=== PATIENT | male | born 1975 | race Caucasian/White ===

== ENCOUNTER 2023-07-25 22:08 | Emergency (ER) | payer SELFPAY ==
[2023-07-25] MEDS ORDERED: TDAP (DIPHTH,PERTUSS(ACELL),TET VAC) 0.5 ML VIAL IMVAC ONE (22:53)
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
[2023-07-25] MEDS ORDERED: IBUPROFEN 400 MG TAB ONE (23:37)
[2023-07-25] MEDS ORDERED: BACI/NEOMYCIN/POLY OINT 15GM TOP ONE (23:37)
[2023-07-25 23:38] VITALS: BP 129/75; TEMP 99.4; O2SAT 100
--- NOTE | 2023-07-27 13:40 | RAD REPORT ---
EXAM DESCRIPTION: RAD - Elbow Right 3 View - 07/25/2023 10:48 pm CLINICAL HISTORY: PAIN COMPARISON: None TECHNIQUE: 3 views of the right elbow. FINDINGS: Normal mineralization. No acute fracture or dislocation. Joint spaces are maintained. No significant joint effusion. Tiny olecranon enthesophyte. IMPRESSION: No acute bony finding. Electronically signed by: Maty Tarango MD 07/26/2023 06:21 AM PARTS FABRICATOR Due to temporary technical issues with the PACS/Fluency reporting system, reports are being signed by the in house radiologist without review as a courtesy to ensure prompt reporting. The interpreting r adiologist is fully responsible for the content of the report.
--- NOTE | 2023-07-27 13:41 | RAD REPORT ---
EXAM DESCRIPTION: CT - Head C Spine Mpr Wo Con - 07/26/2023 6:40 am CLINICAL HISTORY: 47 years Male Pain;Trauma COMPARISON: None TECHNIQUE: Images were obtained and axial, sagittal, and coronal planes. This exam was performed according to our departmental dose-optimization program which includes use of Automated Exposure Control, adjustment of the mA and/or kV according to patient size and/or use of iterative reconstruction technique. FINDINGS: CT brain: Ventricular system appears normal. No abnormal areas of increased attenuation se en. No extra-axial fluid collections noted. No evidence for skull fracture. Symmetric aeration mastoi d air cells bilaterally. Unremarkable paranasal sinuses. CT cervical spine: Tiny of the vertebral bodies is intact. Satisfactory alignment articular facets. I ntact odontoid and predental space. Prevertebral soft tissues appear normal. Intact occipital condyle s. Intact C1. Posterior elements intact on all levels. No abnormality lung apices bilaterally. No foc al disc protrusion. IMPRESSION: No acute intracranial abnormality. No evidence for hemorrhage, mass lesion, or large acu te infarction. No acute fracture or subluxation involving the cervical spine. Electronically signed by: Mirna Blake MD 07/26/2023 12:08 AM RNFA Due to temporary technical issues with the PACS/Fluency reporting system, reports are being signed by the in house radiologist without review as a courtesy to ensure prompt reporting. The interpreting r adiologist is fully responsible for the content of the report.
== END 2023-07-25 23:30 | disposition home or self-care (01) ==
LOC: ER 22:08
DX: S00.81XA Abrasion of other part of head, initial encounter (principal); S50.01XA Contusion of right elbow, initial encounter
CPT/HCPCS: 70450; 72125; 96372; 99284